=== PATIENT | female | born 1950 | race Caucasian/White ===

== ENCOUNTER 2018-04-28 18:30 | Inpatient (IN) | payer OTHER ==
[~2018-04-28] VITALS: Ht 172.7 cm; Wt 96.2 kg
[2018-04-28 20:38] VITALS: BP 102/30
[2018-04-28 21:50] VITALS: BP 108/42
[2018-04-28 23:30] VITALS: BP 101/35
[2018-04-28] MEDS ORDERED: LISINOPRIL40 MG PO (23:51)
[2018-04-28] MEDS ORDERED: ZOLOFT50 MG PO (23:52)
[2018-04-28] MEDS ORDERED: COREG25 MG PO (23:52)
[2018-04-28] MEDS ORDERED: ASPIR 8181 MG PO (23:53)
[2018-04-28] MEDS ORDERED: CRESTOR40 MG PO (23:53)
[2018-04-28] MEDS ORDERED: D3 DOTS2000 UNIT PO (23:54)
[2018-04-28] MEDS ORDERED: PROAIR HFA8.5 GM (23:55)
[2018-04-28] MEDS ORDERED: CHANTIX1 MG PO (23:56)
[2018-04-29 00:11] LABS: CALCIUM 7.6 mg/dL (8.5-10.1); MAGNESIUM 2.1 mg/dL (1.8-2.4)
[2018-04-29 00:13] LABS: POTASSIUM 2.9 mmol/L (3.5-5.1)
[2018-04-29 00:19] VITALS: BP 96/44
--- NOTE | 2018-04-29 05:25 | NUR ---
PATIENT IS ALERT AND ORIENTED. PATIENT IS SBA WITH WALKER TO BSC. PATIENT IS NSR C BBB ON TELE. PAITNET IS ON 2L NC WHICH IS BASE LINE. PATIENT HAS TWO ABRASTIONS TO LT ARM AND RT KNEE. PATIENT HAS (+) ORTHOSTATICS. PATIENT IS PENDING MRI TODAY. PATIENTS POTASSIUM WAS REPLACED. PATIENT IS RESTING CODMFORTABLEY IN BED. WCM. PATIENT IS PROGRESSING TO GOALS.
[2018-04-29 05:51] VITALS: BP 98/39
[2018-04-29 08:17] VITALS: BP 106/39
--- NOTE | 2018-04-29 11:54 | H ---
[facility] [place] [address] [address] HISTORY AND PHYSICAL Name: AIMEE HDZ Room #: 355-P ADM IN M.R.#: [id number] Admission: 04/28/18 Attend Phys: Rhonda Peñaloza Discharge: Date of : 48 Report #: [id number] THIS REPORT FOR: //name// CC: FAM physician/PCP Rhonda Peñaloza DATE OF SERVICE: 04/28/2018 ATTENDING PHYSICIAN: Dr. Rhonda Peñaloza. PRIMARY CARE PHYSICIAN: Dr. Manny Mcconnell. CHIEF COMPLAINT: Fall and bumped troponin. HISTORY OF PRESENT ILLNESS: The patient is a 67-year-old female who has a remote history of coronary artery disease. She was diagnosed with multiple myeloma in 11/2017 and has been on immunotherapy. In the last month, she has had increasing weakness and fatigue. She reports that she has had 4 recent falls. Last night, she fell and did hit her head. She did not lose consciousness. She then got herself back to bed and slept the rest tonight, but when she woke up this morning, she was still feeling dizzy and weak, so she went to the ER at [facility]. There, she was evaluated and noted to be orthostatic. Her evaluation included elevated D-dimer, for which she had a CTA done of the chest, which was negative for PE. She also had a CT of the head, which showed lytic lesions of the ____ which may represent osseous metastatic disease versus multiple myeloma and a CT of the neck showed lytic lesions of C2. No fracture or malalignment. She was aware of the bone lesions on her skull and C2 from a recent PET scan. She had a mild elevation of troponin from her initial troponin at catheterization; therefore, she was sent as a direct admission to [facility] [place] where she could see a metal spinner if needed. She states that initially her falls were related to her left leg giving out. She says sometimes it feels like it just does not work properly. In her last fall, she did feel dizzy initially and prior to her left leg giving out. She also complains of some lower rib pain bilaterally. This pain is worse with taking deep breath. She denies any recent cough or congestion. She has not been having fevers, chills, nausea or vomiting. She does have intermittent diarrhea, which she attributes to her immunotherapy. This resolves when she takes the Imodium. She follows with Dr. Bills with Oncology for her multiple myeloma. She denies any history of strokes. Denies any history of PE or DVT. She has not been having any calf swelling or tenderness. As far as her coronary artery disease, she has a history of coronary stents as well as peripheral vascular disease with bilateral lower extremity stent and lower extremity bypass surgeries. She thinks she last had a catheterization over 10 years ago in our system. There does not appear to be any prior cath reports available, but she did have a stress test done in 03/2011, which was normal. She had an EF of 65% at that time. She denies any recent exertional chest pain. [facility] [address] [place] [address] HISTORY AND PHYSICAL Name: AIMEE HDZ TEVIN Room #: 355-P ADM IN M.R.#: [id number] Admission: 04/28/18 Attend Phys: Rhonda Peñaloza Discharge: Date of : 48 Report #: [id number] From her fall last night, she did sustain a skin tear to her left elbow and bruise on her right forehead. Otherwise, she denies any injury from her fall. At [facility], she was also noted to be orthostatic upon arrival. She states recently her blood pressures have been running low. PAST MEDICAL HISTORY: Hypertension, hyperlipidemia, coronary artery disease, multiple myeloma, peripheral vascular disease. COPD, which is oxygen dependent. Obstructive sleep apnea. PAST SURGICAL HISTORY: Coronary stent, left and right lower extremity stents, right iliac artery bypass, right fem-pop bypass. ALLERGIES: PENICILLIN. SHE THINKS CAUSES A RASH, BUT THIS WAS A CHILD. HOME MEDICATIONS: Albuterol inhaler p.r.n., Chantix 1 mg p.o. b.i.d. Crestor 40 mg daily, carvedilol 25 mg p.o. b.i.d., lisinopril 40 mg daily, aspirin 81 mg daily, Zoloft 100 mg b.i.d., vitamin D 2000 units daily. SOCIAL HISTORY: The patient smokes 6 cigarettes per day. She has been smoking up to 2 packs per day for the last 40 years, but has recently been cutting back. Denies any alcohol or drug use. She lives at home with her daughter. She normally ambulates independently, but recently has been using a sliding chair when she ambulates. FAMILY HISTORY: Her mother from an PR at the age of 65. Her father from an PR at the age of 52. She has a sister who from AML and another sister who is currently alive with CLL. REVIEW OF SYSTEMS: Twelve-point review of systems was reviewed with the patient, otherwise negative unless stated in the HPI. PHYSICAL EXAMINATION: GENERAL: The patient is an alert female in no acute distress. VITAL SIGNS: Temperature is 98.0, heart rate 60, respirations 20, blood pressure is 102/30, oxygen 97% on 2 liters. HEENT: PERRLA. Sclerae nonicteric. Head is traumatic, with small hematoma above her right eye. Oral mucosa is pink and moist. NECK: Supple, no JVD noted. CARDIOVASCULAR: Normal S1, S2. No murmurs, rubs or gallops. RESPIRATORY: Breath sounds are with diffuse expiratory wheezes bilaterally. Breathing is nonlabored. ABDOMEN: Obese, soft and nontender with positive bowel sounds. VASCULAR: No edema noted. Pedal pulses are 2+. NEUROLOGIC: The patient is alert and oriented x 3. Speech is clear. No facial asymmetry. Muscle strength is 5/5 in bilateral upper extremities. Coordination is intact in bilateral upper extremities with [id number] testing. She does [facility] [place] [address] HISTORY AND PHYSICAL Name: AIMEE HDZ [facility] Room #: 355-P ADM IN M.R.#: [id number] Admission: 04/28/18 Attend Phys: Rhonda Peñaloza Discharge: Date of : 48 Report #: [id number] have slight weakness in the left lower extremity measuring 4/5 and sensation is intact in bilateral lower extremities. Speech is clear. SKIN: She does have a skin tear with open wound to her left elbow. There is a small amount of bloody drainage and hematoma above her right eye as previously mentioned. LABORATORY DATA AND DIAGNOSTICS: WBC is 11.7, hemoglobin 12.3, platelets 105. Sodium 141, potassium 2.7, BUN 31, creatinine 1.2, glucose 95, magnesium 1.9. LFTs are within normal limits. D-dimer is 2020. BNP is 728. Troponin is 0.039 and 0.045. UA showed large amount of bilirubin, but negative for leukocyte esterase. EKG showed normal sinus rhythm. CT of the head and neck showed no acute findings. There were lytic lesions of the ____which may represent osseous metastatic disease versus multiple myeloma, and there are lytic lesions of C2 with no fracture or malalignment of the cervical spine. CTA of the chest showed no pulmonary embolism. There was a nodular mural thrombus in the descending aorta measuring 1 cm. There was moderate diffuse emphysema, but no bony lesion. ASSESSMENT AND PLAN: 1. Falls. This may be multifactorial due to generalized weakness from recent immunotherapy as well as orthostatic hypotension from blood pressure meds. There is also concern for stroke versus metastatic lesion causing left leg weakness. We will further evaluate this with an MRI of the brain with and without contrast. We will have Physical Therapy evaluate. Continue to check orthostatics, hold blood pressure medications. 2. Orthostatic hypotension. The patient does have a history of hypertension. Blood pressure meds will be held. Check orthostatics b.i.d. 3. Left leg weakness. See #1. Follow MRI results. 4. Multiple myeloma. The patient has been on immunotherapy. She has known osseous lesions of the scalp in C2. She did have an elevated D-dimer, but there is no PE noted on CTA. 5. Chronic obstructive pulmonary disease. She does have ongoing tobacco abuse. She has been advised to quit. We will add scheduled breathing treatments. 6. Hypokalemia. This is being replaced. Follow labs. 7. History of coronary artery disease and peripheral vascular disease with prior stenting. Continue with aspirin daily. She has been having some pleuritic-like chest pain, but CTA was negative for any metastatic bone lesions or pulmonary embolism. 8. Deep venous thrombosis prophylaxis, place sequential compression devices. We will continue to follow the patient closely throughout the hospitalization and make changes based on clinical status. <ELECTRONICALLY SIGNED> By: JESSICA Burgess 04/29/18 1154 [id number] JESSICA Burgess /nt
[2018-04-29 12:28] VITALS: BP 105/36
--- NOTE | 2018-04-29 15:23 | NUR ---
ASSESSMENT: CM REVIEWED CHART AND MET WITH PATIENT AT THE BEDSIDE. PT HAS HX OF MULTIPLE MYELOMA AND HAS BEEN ON IMMUNOTHERAPY AND HOSPITALIZED FOR SYNCOPE. PT REPORTS SHE LIVES IN A MOBILE HOME WITH HER DAUGHTER. PT REPORTS HAVING 4 STEPS WITH A HANDRAIL TO ENTER HER MOBILE HOME. PT REPORTS ONCE INSIDE SHE HAS NO STEPS. PT REPORTS HAVING A SHOWER BENCH. PT REPORTS SHE HAS NOT HAD HH IN THE PAST NOR BEEN TO A SNF. PT/OT EVALS ARE PENDING. PATIENT FEELS SHE MAY NEED A CANE OR WALKER. CM WILL CONTINUE TO FOLLOW TO ASSIST NEEDED.
[2018-04-29 16:52] VITALS: BP 132/60
--- NOTE | 2018-04-29 18:35 | NUR ---
ASSUMED PATIENT CARE AT 0700. A/O X4. PLEASANT. PATIENT HAS 5 LOOSE STOOL TODAY. STOOL CHECK FOR CDIFF SENT. GENERLIZED WEAKNESS. VSS. STANDBY ASSIST TO [place]ST[place]. SLOWLY TOWARDS POC GOALS.
[2018-04-29 19:13] VITALS: BP 117/55
[2018-04-30] VITALS (10 sets, daily range): BP systolic 75–143; BP diastolic 43–102
--- NOTE | 2018-04-30 04:13 | NUR ---
PATIENT IS PROGRESSING IN HER CARE PLAN. VITAL SIGNS STABLE WITH PATIENT HAVING NO COMPLAINTS OF NAUSEA. PATIENT DID COMPLAIN OF PAIN WHICH WAS TREATED EFFECTIVELY WITH MEDICATION. FULLY ORIENTED, PATIENT WAS ABLE TO PARTICIPATE IN CARE PLAN AND CALL APPROPRIATELY FOR NEEDS. PATIENT REMAINS ON OXYGEN BUT IS HAVING NO TROUBLE BREATHING EVIDENCED BY ADEQUATE READING ON SPOT OXYGENATION CHECKS. PATIENT HAS BEEN ABLE TO AMBULATE TO BEDSIDE COMMODE WITH ASSISTANCE INCIDENT FREE. SHE IS HAVING FEWER EPISODES OF DIARRHEA. CDIFF RESULTS HAVE CAME BACK NEGATIVE WITH PATIENT COMING OUT OF ISOLATION. ORTHOSTATIC BLOOD PRESSURES TO BE TAKEN THIS MORNING. CONTINUE PLAN OF CARE.
--- NOTE | 2018-04-30 15:17 | NUR ---
ON-GOING ASSESSMENT: CM REVIEWED CHART AND MET WITH PATIENT AT THE BEDSIDE. CM DISCUSSED DISCHARGE PLANNING AND PT REPORTS SHE FEELS VERY WEAK. CM DISCUSSED HOW ATTENDING FELT PT MAY BENEFIT FROM SNF AND SHE REPORTS SHE FEELS SHE WOULD SHE FEELS DRAINED AND VERY WEAK. CM GAVE PATIENT A SNF OF IN-NETWORK FACILITIES WITH HER INSURANCE AND SHE REPORTS SHE WOULD LIKE TO BE SOMEWHERE CLOSE TO HER HOME IN [place]. PATIENT REVIEWED AND WANTED A REFERRAL SENT TO [facility]. CM SENT REFERRAL AND NOTIFIED GIACOMO VAZQUEZ AT [facility]. PT STATES SHE MAY ALSO BE INTERESTED IN [place]. CM WILL CONTINUE TO FOLLOW TO ASSIST NEEDED.
--- NOTE | 2018-05-01 00:18 | NUR ---
CARE OF PATIENT TRANSFERRED TO MERVIN DANGELO AT 0015. FULL REPORT GIVEN.
--- NOTE | 2018-05-01 03:09 | NUR ---
ASSESSMENT CHARTED. TOOK OVER CARE OF PATIENT AT 0015. PATIENT SLEEPING.
[2018-05-01 04:22] VITALS: BP 138/72
[2018-05-01 05:53] LABS: ALBUMIN 2.4 g/dL (3.4-5.0); CALCIUM 7.3 mg/dL (8.5-10.1); CREATININE 0.6 mg/dL (0.6-1.0); PHOSPHORUS 1.3 mg/dL (2.5-4.9)
[2018-05-01 06:09] LABS: POTASSIUM 2.9 mmol/L (3.5-5.1)
[2018-05-01 07:40] VITALS: BP 142/72
[2018-05-01] MEDS ORDERED: COREG25 MG PO (08:43)
[2018-05-01] MEDS ORDERED: LISINOPRIL40 MG PO (08:49)
[2018-05-01 10:03] VITALS: BP 146/76
--- NOTE | 2018-05-01 10:27 | NUR ---
ON-GOING ASSESSMENT: CM REVIEWED CHART AND MET WITH PATIENT AT THE BEDSIDE. PT RECOMMENDING HH VS SNF AND OT IS RECOMMENDING HH. PT REPORTS FEELING SAFE DISCHARGING TO HER MOBILE HOME WHERE SHE LIVES WITH HER DAUGHTER WITH HH. PT HAS NO PREFERENCE OF HH AGENCY. CM NOTIFIED [facility] BUT THEY DO NOT GO TO [place]. CM CONTACTED A HH AND INTERIM WHO SERVICE THAT AREA AND REFERRALS WERE SENT. PATIENT WILL NEED A WALKER AT HOME BUT PATIENT REPORTS HER SON GOT HER ONE. PT ASKING ABOUT A BEDSIDE COMMODE. CM NOTIFIED PATIENT THAT INSURANCE DOES NOT COVER BEDSIDE COMMONDE UNLESS SHE DOES NOT HAVE A WORKING TOILET ON THE FIRST FLOOR ( PER [employer] AT [employer]). CM NOTIFIED PATIENT THAT BEDSIDE COMMODE OR STOOL RISER CAN BE PURCHASED AT [employer] OR [employer]. PT STATES SHE WILL LIKELY HAVE HER FAMILY GO TO [employer].
[2018-05-01 11:50] VITALS: BP 124/61
[2018-05-01 13:25] LABS: CREATININE 0.6 mg/dL (0.6-1.0); POTASSIUM 3.3 mmol/L (3.5-5.1)
[2018-05-01 14:02] VITALS: BP 124/61
--- NOTE | 2018-05-01 15:59 | NUR ---
ASSUMED PATIENT CARE AT 0700. A/O X4. NO LOOSE STOOL ON THIS SHIFT. PATIENT FEELS BETTER. RE[PLACED K+ AND MG+. PROGRESSING TOWARDS POC GOALS. WILL DC TO HOME WITH HH.
== END 2018-05-01 16:30 | disposition home health service (06) | DRG 312 ==
LOC: 3W 18:30 → ENTRNSPT 05-01 17:00
PROVIDERS: Nurse Practitioner Acute Care; ADMIT Hospitalist
DX: I95.1 Orthostatic hypotension (principal); C90.00 Multiple myeloma not having achieved remission; I25.10 Atherosclerotic heart disease of native coronary artery without angina pectoris; I10 Essential (primary) hypertension; E78.5 Hyperlipidemia, unspecified; I73.9 Peripheral vascular disease, unspecified; G47.33 Obstructive sleep apnea (adult) (pediatric); E87.6 Hypokalemia; M19.90 Unspecified osteoarthritis, unspecified site; J44.9 Chronic obstructive pulmonary disease, unspecified; Z99.81 Dependence on supplemental oxygen; Z88.0 Allergy status to penicillin; Z82.49 Family history of ischemic heart disease and other diseases of the circulatory system; Z80.6 Family history of leukemia; W18.39XA Other fall on same level, initial encounter; Y93.89 Activity, other specified; Y92.89 Other specified places as the place of occurrence of the external cause; Y99.8 Other external cause status
CPT/HCPCS: 10879

== ENCOUNTER → 2019-09-02 | Outpatient (CLI) | payer OTHER ==
[~2019-09-02] MED LIST: ASPIR 8181 MG PO; CHANTIX1 MG PO; COREG25 MG PO; CRESTOR40 MG PO; D3 DOTS2000 UNIT PO; LISINOPRIL40 MG PO; PROAIR HFA8.5 GM; ZOLOFT50 MG PO
== END ==
LOC: SJCVCIMAG 11:50
DX: I70.201 Unspecified atherosclerosis of native arteries of extremities, right leg (principal); I34.0 Nonrheumatic mitral (valve) insufficiency; R00.1 Bradycardia, unspecified; I25.10 Atherosclerotic heart disease of native coronary artery without angina pectoris; E78.00 Pure hypercholesterolemia, unspecified; I10 Essential (primary) hypertension; I25.5 Ischemic cardiomyopathy; R09.89 Other specified symptoms and signs involving the circulatory and respiratory systems; R06.02 Shortness of breath; Z72.0 Tobacco use; Z95.828 Presence of other vascular implants and grafts

== ENCOUNTER 2019-09-28 14:41 | Inpatient (IN) | payer OTHER ==
[~2019-09-28] VITALS: Ht 172.7 cm; Wt 54.9 kg
[2019-09-28 14:41] VITALS: BP 85/43
--- NOTE | 2019-09-28 15:13 | NUR ---
Pt reports she had a low hemoglobin today at the cancer center. See musculoskeletal assessment for further details.
[2019-09-28] MEDS ORDERED: KLOR-CON 10 ER10 MEQ PO (15:19)
[2019-09-28] MEDS ORDERED: ZESTRIL40 MG PO (15:19)
[2019-09-28] MEDS ORDERED: CARVEDILOL25 MG PO (15:19)
[2019-09-28] MEDS ORDERED: CHANTIX1 MG PO (15:20)
[2019-09-28] MEDS ORDERED: ACYCLOVIR 800800 MG PO (15:20)
[2019-09-28] MEDS ORDERED: ACETAMINOPHEN-1 EACH PO (15:21)
[2019-09-28] MEDS ORDERED: ZYRTEC10 M2 PO (15:21)
[2019-09-28 15:32] LABS: HEMATOCRIT 30.2 % (37.0-47.0); HEMOGLOBIN 10.3 gm/dL (12.0-15.0); MCH 37.3 pg (26.0-34.0); MCHC 34.1 g/dL (28.0-37.0); MCV 109.2 fL (80.0-100.0); RBC 2.76 mil/uL (4.20-5.00); RDW 14.5 % (10.5-14.5); WBC 3.5 thou/uL (4.0-11.0)
[2019-09-28 15:39] LABS: ANION GAP 12 mmol/L (7-16); BUN 47 mg/dL (7-18); CALCIUM 7.2 mg/dL (8.5-10.1); CHLORIDE 101 mmol/L (98-107); CO2 21 mmol/L (21-32); CREATININE 2.1 mg/dL (0.6-1.0); GLUCOSE 117 mg/dL (74-106); POTASSIUM 3.9 mmol/L (3.5-5.1); SODIUM 134 mmol/L (136-145)
[2019-09-28 15:48] LABS: TROPONIN-I <0.06 ng/mL (<0.06)
[2019-09-28 16:03] LABS: ABSOLUTE NEUTROPHILS 2.2 thou/uL (1.4-8.2)
[2019-09-28 16:04] LABS: MACROCYTES 1+; PLATELET COUNT 78 thou/uL (150-400)
[2019-09-28 16:37] LABS: URINE BLOOD 1+ (Negative); URINE COLOR YELLOW; URINE GLUCOSE-RANDOM* NEGATIVE (Negative); URINE KETONES 1+ (Negative); URINE PROTEIN (DIPSTICK) 2+ (Negative); URINE UROBILINOGEN 0.2 E.U./dl (0.2-1.0)
[2019-09-28 16:40] LABS: URINE BILIRUBIN NEGATIVE (Negative); URINE LEUKOCYTES-REFLEX 2+ (Negative); URINE NITRITE-REFLEX POSITIVE (Negative)
[2019-09-28 16:41] LABS: ICTOTEST (BILI CONFIRMATORY) Negative (Negative); URINE CLARITY CLOUDY
[2019-09-28 16:45] LABS: SQUAMOUS 0-3 Few /LPF (0-3)
[2019-09-28 16:46] LABS: BACTERIA-REFLEX >30 Many /HPF (None Seen); CASTS None Seen /LPF (None Seen); CRYSTALS None Seen /LPF (None Seen); URINE RBC 3-10 Few /HPF (0-2); URINE WBC-REFLEX >25 Many /HPF (0-5)
[2019-09-28] MEDS ORDERED: ASPIRIN EC325 M1 PO (17:00)
[2019-09-28 17:14] VITALS: BP 120/53
[2019-09-28 17:18] VITALS: BP 120/53
[2019-09-28 17:56] VITALS: BP 116/52
[2019-09-28 18:27] VITALS: BP 127/67
[2019-09-28 18:49] LABS: FOLIC ACID 7.2 ng/mL (8.6-58.9); TSH 1.389 uIU/mL (0.358-3.740)
--- NOTE | 2019-09-28 19:19 | NUR ---
PATIENT ADMIT TO UNIT AT 1615. A/O X4. NO DISDRESS NOTED. WILL KEP MONITOR.
[2019-09-28 23:04] VITALS: BP 129/51
--- NOTE | 2019-09-29 01:30 | NUR ---
PT ALERT AND OIENTED X4 . VSS AFEBRILE. HRR. LUNGS DIMINSHED BILATERALLY. UNLABORED ON RA. ASSESSMENT HX COMPLETED. SCDS APPLIED. PICTURES OF SCABS ON RIGHT ARM TAKEN AND LEFT HAND FROM WHERE SHE FELL PRIOR TO ADMISSION. BARRIER CREAM APPLIED TO BUTTOCKS . PT STATED SHE HAS INCONTINENCE AT TIMES. NO OTHER SKIN BREAKDOWN NOTED. ENCOURAGED PT TO TURN SIDE TO SIDE. FEET ELEVATED ON PILLOWS. INSTRUCTED PT ON FALL PRECAUTIONS DUE TO WEAKNESS. NS INFUSING WITHOUT DIFFICULTY R WRIST. PT DENIED NEED FOR PAIN MEDS.CAREPLAN UPDATED.
[2019-09-29 03:47] VITALS: BP 116/61
[2019-09-29 05:47] LABS: ABSOLUTE NEUTROPHILS 1.8 thou/uL (1.4-8.2); BASOPHILS 0.5 % (0.0-2.0); EOSINOPHILS 3.8 % (0.0-3.0); HEMOGLOBIN 8.6 gm/dL (12.0-15.0); LYMPHOCYTES 28.9 % (24.0-44.0); MCH 37.2 pg (26.0-34.0); MCHC 34.3 g/dL (28.0-37.0); MCV 108.3 fL (80.0-100.0); MONOCYTES 10.9 % (1.0-8.0); PLATELET COUNT 63 thou/uL (150-400); POLYS 55.9 % (36.0-66.0); RBC 2.31 mil/uL (4.20-5.00); RDW 14.1 % (10.5-14.5); WBC 3.3 thou/uL (4.0-11.0)
[2019-09-29 06:01] LABS: CALCIUM 6.8 mg/dL (8.5-10.1); CREATININE 1.7 mg/dL (0.6-1.0); MAGNESIUM 1.3 mg/dL (1.8-2.4); POTASSIUM 3.4 mmol/L (3.5-5.1)
--- NOTE | 2019-09-29 06:19 | NUR ---
Pt progressing towards d/c goals. She stated she is feeling better this morning and is anxious to go home. Pt has denied pain all night. Pt had some mild brief nausea but refused nausea meds due to she states when it occurs it is very brief.
[2019-09-29 07:27] VITALS: BP 116/74
--- NOTE | 2019-09-29 07:28 | EKG ---
[facility] [place] [address] [place] [address] ELECTROCARDIOGRAM REPORT Name: AIMEE HDZ Room #: 362-P ADM IN M.R.#: [id number] Admission: 09/28/19 Attend Phys: Son Byrne MD Discharge: Date of : 48 Report #: [id number] THIS REPORT FOR: cc: UNA - Debi family physician/PCP UNA - Debi family physician/PCP Abhijit Sharma MD [facility] THIS REPORT FOR: //name// [facility] ED Test Date: 2019-09-28 Test Time: 15:36:44 Pat Name: AIMEE HDZ Department: Room: 362 Gender: F Cloth Shrinker: KEYSHAWN MATUTE : 1950 Requested By: Iglesia Cheng Order Number: [id number] MD: Abhijit Sharma Measurements Intervals [place] Rate: 62 P: 89 [place]: 138 QRS: 48 QRSD: 103 T: 16 QT: 453 QTc: 460 Interpretive Statements Sinus rhythm Cannot rule out inferior infarct, old Compared to ECG 01/25/1999 09:06:00 No significant change was found Electronically Signed On 09-29-2019 7:28:06 CDT by Abhijit Sharma [email or web address] <ELECTRONICALLY SIGNED> By: Abhijit Sharma MD, [facility] 09/29/19 0728 [id number] Abhijit Sharma MD, [facility] /EPI
--- NOTE | 2019-09-29 11:58 | NUR ---
INITIAL ASSESSMENT: Received consult for discharge planning. SW reviewed chart and spoke with nursing and attending physician. Pt was admitted from her oncology office yesterday. Pt with hx of multiple myeloma. SW met with pt at bedside. Introduced role of SW. Pt is alert/orientated x 4. Pt reports she lives at home with her dtr. Prior to admission, pt was independent with ADLs. Pt does have a walker. Pt has [facility] through her insurance for RN visits. Pt has also used [facility]. Pt's PCP is Dr. Yazmin Reveles in [place]. Pt's oncologists is Dr. Bills (Catrina [place], [place]). Therapy to evaluate pt prior to discharge. Discharge home is anticipated for tomorrow. ANN MARIE is following to assist as needed with discharge planning.
[2019-09-29 13:42] LABS: CALCIUM 6.9 mg/dL (8.5-10.1); PHOSPHORUS 2.5 mg/dL (2.5-4.9)
[2019-09-29 15:55] VITALS: BP 118/58
--- NOTE | 2019-09-29 16:55 | NUR ---
assumed patient care at 0700. a/o x4. denies pain. vss. up with standy assisted. slowly towards poc goals.
[2019-09-29 19:50] VITALS: BP 110/55
--- NOTE | 2019-09-29 21:56 | NUR ---
Pt alert and oriented x4. VSS Afebrile HRR LUNG DIMINSHED. UNLABORED ON RA. DENIED PAIN. NO S/S DISTRESS.
[2019-09-29 23:37] VITALS: BP 131/61
--- NOTE | 2019-09-30 01:04 | NUR ---
NOTIFIED FRITZ CLIFFORD OF BLOOD CX RESULTS THAT DO NOT APPEAR TO HAVE BEEN CALLED ON DAY SHIFT. REPORTED PRELIMINARY BLOOD CX P[OSITIVE FR GRAM POSITIVE COCCI IN CLUSTERS. PT ON ROCEFIN. NO FURTHER ORDERS GIVEN.
[2019-09-30 04:48] VITALS: BP 107/57
--- NOTE | 2019-09-30 04:54 | NUR ---
PT PROGRESSING SLOWLY TOWARDS D/C GOALS . VSS. T 99.1 .HRR LUNGS DIMINSHED SLIGHTLY. UNABORED ON RA. NO S/S DISTRESS TONIGHT. BED ALARM ON . PT COMPLIANT WITH FALL PRECAUTIONS.
[2019-09-30 05:24] LABS: CALCIUM 6.9 mg/dL (8.5-10.1); CREATININE 1.4 mg/dL (0.6-1.0)
[2019-09-30 08:05] VITALS: BP 118/52
[2019-09-30] MEDS ORDERED: KEFLEX500 M1 PO (08:34)
[2019-09-30 10:00] LABS: MAGNESIUM 1.1 mg/dL (1.8-2.4)
[2019-09-30 10:12] VITALS: BP 118/52
--- NOTE | 2019-09-30 11:31 | NUR ---
ASSUMED PATIENT CARE TODAY AT APPROXIMATELY 7AM. PATIENT ASSESSMENT AND MEDS CHARTED. SEEN BY DOCTOR CALOS, DISCHARGE ORDERS GIVEN FOR PATIENT TO GO HOME TODAY. PATIENT TO GO HOME WITH HER DAUGHTER. REPLACED POTASSIUM AND MAGNESIUM PER MD ORDERS. CHECKED WITH MD REGARDING RECHECK ON LABS, STATES OK TO DSICHARGE WIHTOUT RECHECK. PATIENT EDUCATED ON FOODS HIGH IN POTASSIUM. PATIENT STATES SHE USUALLY TAKES POTASSIUM SUPPLEMENT AT HOME. DENIES ANY PAIN, DENIES ANY FURTHER QUESTIONS AT THIS TIME.WANTS DISCHARGE INSTRUCTIONS TO BE GIVEN WITH DAUGHTER IN ROOM.
[2019-09-30 11:58] VITALS: BP 105/54
--- NOTE | 2019-09-30 13:23 | NUR ---
EDUCATED PATIENT AT THIS TIME RE: DISCHARGE INSTRUCTIONS, PATIENT STATES UNDERSTANDING OF FOLLOW UP APPOINTMENTS, NEW MEDICATIONS CHANGES, SIDE EFFECTS OF MEDS. DENIES ANY FURTHER QUESTIONS AT THIS TIME. IV SALINE LOCK AND MAJOR ASSEMBLY INSPECTOR REMOVED AND RETURNED TO STATION. VSS. WAITING FOR HER DAUGHTER TO COME PICK HER UP FOR DISCHARGE. ALL PATIENT BELONGINGS COLLECTED AND GIVEN TO PATIENT FOR DISCHARGE
--- NOTE | 2019-09-30 14:48 | NUR ---
DISCHARGE NOTE: SW reviewed chart and spoke with nursing and attending physician. Pt is medically stable for discharge home today. Pt's family to provide transportation home. No additional SW needs identified at this time, but is available to assist should needs arise.
== END 2019-09-30 14:05 | disposition home or self-care (01) | DRG 871 ==
LOC: ER 14:41 → 3W 17:11 → EROBS 17:11 → 3W 18:42
PROVIDERS: Emergency Medicine; Nurse Practitioner; ADMIT Hospitalist; ATTEND Hospitalist
DX: A41.9 Sepsis, unspecified organism (principal); E43 Unspecified severe protein-calorie malnutrition; R65.21 Severe sepsis with septic shock; N39.0 Urinary tract infection, site not specified; C90.00 Multiple myeloma not having achieved remission; Z68.1 Body mass index [BMI] 19.9 or less, adult; N17.9 Acute kidney failure, unspecified; D64.9 Anemia, unspecified; D70.8 Other neutropenia; J44.9 Chronic obstructive pulmonary disease, unspecified; I10 Essential (primary) hypertension; E78.5 Hyperlipidemia, unspecified; I95.9 Hypotension, unspecified; R63.4 Abnormal weight loss; E55.9 Vitamin D deficiency, unspecified; G47.00 Insomnia, unspecified; F32.9 Major depressive disorder, single episode, unspecified; Z88.0 Allergy status to penicillin; Z87.891 Personal history of nicotine dependence; Z95.5 Presence of coronary angioplasty implant and graft; Z92.21 Personal history of antineoplastic chemotherapy; Z79.82 Long term (current) use of aspirin; Z79.899 Other long term (current) drug therapy
CPT/HCPCS: 10879

== ENCOUNTER → 2020-02-04 | Outpatient (CLI) | payer OTHER ==
[~2020-02-04] MED LIST changes: +ACETAMINOPHEN-1 EACH PO; +ACYCLOVIR 800800 MG PO; +ASPIRIN EC325 M1 PO; +CARVEDILOL25 MG PO; +KEFLEX500 M1 PO; +KLOR-CON 10 ER10 MEQ PO; +ZESTRIL40 MG PO; +ZYRTEC10 M2 PO
== END ==
LOC: SJCVCIMAG 08:39
PROVIDERS: ATTEND Internal Medicine Cardiovascular Disease
DX: I65.23 Occlusion and stenosis of bilateral carotid arteries (principal); R00.0 Tachycardia, unspecified; I42.9 Cardiomyopathy, unspecified; I25.10 Atherosclerotic heart disease of native coronary artery without angina pectoris; I10 Essential (primary) hypertension; E78.5 Hyperlipidemia, unspecified; J44.9 Chronic obstructive pulmonary disease, unspecified; Z79.899 Other long term (current) drug therapy; Z87.891 Personal history of nicotine dependence

== ENCOUNTER → 2020-05-08 | Outpatient (CLI) | payer OTHER | LOC: SJCVC 10:54 | PROVIDERS: ATTEND Internal Medicine Cardiovascular Disease | DX: R94.31 Abnormal electrocardiogram [ECG] [EKG] (principal); I25.10 Atherosclerotic heart disease of native coronary artery without angina pectoris; I10 Essential (primary) hypertension; E78.00 Pure hypercholesterolemia, unspecified; I73.9 Peripheral vascular disease, unspecified; I25.5 Ischemic cardiomyopathy; I65.23 Occlusion and stenosis of bilateral carotid arteries; C90.00 Multiple myeloma not having achieved remission; J44.9 Chronic obstructive pulmonary disease, unspecified; Z87.891 Personal history of nicotine dependence; Z79.899 Other long term (current) drug therapy; Z79.82 Long term (current) use of aspirin; Z88.0 Allergy status to penicillin ==

== ENCOUNTER → 2020-12-05 | Outpatient (CLI) | payer OTHER | LOC: SJCVCIMAG 07:54 | PROVIDERS: ATTEND Internal Medicine Cardiovascular Disease | DX: I65.23 Occlusion and stenosis of bilateral carotid arteries (principal); I70.202 Unspecified atherosclerosis of native arteries of extremities, left leg; I77.1 Stricture of artery; I25.10 Atherosclerotic heart disease of native coronary artery without angina pectoris; I10 Essential (primary) hypertension; E78.00 Pure hypercholesterolemia, unspecified; I25.5 Ischemic cardiomyopathy; F17.210 Nicotine dependence, cigarettes, uncomplicated; Z79.82 Long term (current) use of aspirin; Z79.899 Other long term (current) drug therapy; Z88.0 Allergy status to penicillin ==